=== PATIENT | male | born 1960 | race Two or more races ===

== ENCOUNTER → 2019-12-29 | Outpatient (CLI) | payer OTHER ==
--- NOTE | 2019-12-30 08:04 | REP ---
LEFT FOOT SERIES, FOUR VIEWS: Four views left foot performed. There is no acute fracture or dislocation. There is a tiny inferior calcaneal spur. There appears to be an old avulsion fracture of the medial malleolus. IMPRESSION: No acute fracture or dislocation. Electronically Signed by Fidel Niño MD 01/01/2020 09:55 A
== END ==
LOC: M LRY 16:04
PROVIDERS: ATTEND Physician Assistant
DX: M77.32 Calcaneal spur, left foot (principal)
CPT/HCPCS: 73630; G0463